=== PATIENT | female | born 1965 | race Caucasian/White ===

== ENCOUNTER 2016-03-15 07:16 | Day surgery (SDC) | payer OTHER, BC ==
[~2016-03-15] VITALS: Ht 177.8 cm; Wt 57.2 kg
[~2016-03-15 07:16] MED LIST: CETI10TA22 PO; FENTANYL PF 100 MCG/2 ML VIAL. IV PRN; HYDROMORPHONE 2 MG/ML VIAL. IV PRN; IV RINGERS,LACTATED 1000ML 1,000 ML IV SCH; LIDOCAINE 1% 1 ML SYRINGE. ID PRN; MORPHINE SULFATE 2 MG/ML DISP.SYRIN. IV PRN; ONDANSETRON PF 4 MG/2 ML VIAL. IV PRN; PROCHLORPERAZINE 10 MG/2 ML VIAL. IV PRN
[2016-03-15] MEDS ORDERED: LIDOCAINE 1%/EPI 1:100,000 20 ML VIAL. ONE (07:49)
[2016-03-15] MEDS ORDERED: BUPIVACAINE-EPI 0.5%-1:200000 50 ML VIAL. ONE (07:50)
[2016-03-15] MEDS ORDERED: MULT1TAB52 PO (07:51)
[2016-03-15] MEDS ORDERED: PROPOFOL 20 ML IV ONE (07:58)
[2016-03-15] MEDS ORDERED: DESFLURANE 31 TO 60 MINUTES IH ONE (07:58)
[2016-03-15] MEDS ORDERED: ONDANSETRON PF 4 MG/2 ML VIAL. ONE (07:58)
[2016-03-15] MEDS ORDERED: DEXAMETHASONE SOD PHOS 20 MG/5 ML VIAL. ONE (07:58)
[2016-03-15] MEDS ORDERED: LIDOCAINE 2% 100 MG/5 ML DISP.SYRIN. ONE (07:58)
[2016-03-15] MEDS ORDERED: FENTANYL PF 100 MCG/2 ML VIAL. ONE (07:59)
[2016-03-15 08:16] LABS: NEG OBC UR NEG; POS OBC UR POS
[2016-03-15] MEDS ORDERED: GLYCOPYRROLATE 1 MG/5 ML VIAL. ONE (08:47)
--- NOTE | 2016-03-15 09:23 | PDOC4 ---
Operative Note Operative Note Operative Note: Preoperative Diagnosis: Right breast mass Postoperative Diagnosis: Same Procedure: Excision of right breast mass Surgeon: Daniel Anesthesia: Gen. EBL: 5 mL Specimen: Right breast mass to pathology Drains: None Complications: None Indication: The patient is a 50-year-old female who is referred with a right breast mass. 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 The mass has continued to enlarge however and a more recent mammogram recommended a biopsy. I discussed with her options including a core needle biopsy versus excision. She strongly prefers excision at this point to allow for complete removal of the mass. The risks of surgery were discussed to include bleeding, infection, scar tissue, pain, recurrence, potential need for additional surgery or procedure. She understands and would like to proceed. Description: The patient was taken to the operating room and placed supine at the operating table. Gen. anesthesia was performed. The right breast was prepped with ChloraPrep and draped in a standard surgical manner. The mass was located between the 9 and 10 o'clock position in the lateral aspect. With a scalpel an incision was made in the skin lines directly overlying the mass. A combination of sharp and cautery dissection were utilized in the breast parenchyma. The mass was readily identified and grayish in color. The mass was mobilized circumferentially from the surrounding breast tissue. The mass was then completely excised and measured 3 x 2.5 cm. The mass was sent to pathology in formalin. Several small bleeding points in the cavity were controlled with cautery. Hemostasis then appeared good. No other abnormalities were noted. The subcutaneous tissue was approximated with interrupted 3-0 Vicryl. The skin was then closed with a 4-0 Monocryl suture. The incision was then infiltrated with half percent Marcaine with epinephrine. Steri-Strips and a sterile OpSite dressing were then applied. The patient tolerated the procedure well and was sent to the recovery room in stable condition. At the end of the case all counts were correct. KHADAR MORGAN MD Mar 15, 2016 09:23
--- NOTE | 2016-03-15 09:25 | DISCH ---
DISCHARGE INSTRUCTIONS Condition on Discharge Condition on Discharge: Stable Activity After Discharge Activity Instructions for Disc: Resume previous activity Diet after Discharge Diet after Discharge: Regular Wound Incision Care Wound/Incision Care: Other, see below (keep dressing clean and dry) Follow-Up Follow up with: Dr Morgan in 1 week in the office, call for appt [phone] KHADAR MORGAN MD Mar 15, 2016 09:25
[2016-03-15] MEDS ORDERED: HYDR-971 PO (09:41)
[2016-03-15] MEDS ORDERED: HYDROCODONE/APAP 5/325MG TABLET. PO ONE ×2 (10:15)
[2016-03-15 10:40] VITALS: BP 115/61
--- NOTE | 2016-03-17 17:31 | PATHOLOGY ---
PATHOLOGY REPORT * * * * * * * * FINAL DIAGNOSIS: Breast tissue, right breast biopsy: - Cellular fibroadenoma. See comment. COMMENT: Sections of the right breast biopsy reveal a fibroepithelial lesion having features of a fibroadenoma. There are focal areas which show a modest increase of stromal cellularity and stromal overgrowth with a slightly infiltrative peripheral border. However, there is no significant stromal cytologic atypia or mitotic activity. The case is also examined by Dr. Anjelica Oliver, pathologist with Pathology. 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 The fibroadenoma does focally extend to the inked peripheral margin. (JPM:mgr; d/t: 03/17/16) REPORT ELECTRONICALLY SIGNED BY: Guzman Martinez M.D. DATE/TIME: 03/17/2016 17:30 * * * * * * * * GROSS PATHOLOGY: The specimen is received in formalin and is designated "right breast mass." This consists of an ovoid segment of yellow and pink-jo fibrofatty breast tissue measuring up to 3.6 x 3.0 x 2.0 cm in greatest dimension. The external surface is inked. Sectioning reveals an eccentric and focally lobulated jo rubbery nodule which is focally calcified. There is a localizing marker within the nodule. The nodule measures up to approximately 2.9 cm in greatest dimension. The nodule is submitted entirely for microscopy as A1-A6. The cold ischemic time is 10 minutes. The total fixation time is 10 hours and 42 minutes. (JPM:mgr; d/t: 03/15/16) INITIAL CPT CODE(S): A; 32858 Professional services performed by [facility] at [address] [address] Technical services performed by [facility] at [address] [place] [address], [address], [place] [address]. [facility] fax: [phone] SPECIMEN(S) RECEIVED: A.Right breast mass CLINICAL HISTORY: Right breast mass PATIENT: DANIEL COBIAN /AGE: 912/06/1965 (Age: 50) PATIENT #: [id number] ALT CASE #: SPECIMEN COLLECTION DATE: 03/15/2016 SPECIMEN RECEIVED DATE: 03/15/2016 [facility] - [id number] [address] - PHONE: [phone] * * * END OF REPORT * * *
== END 2016-03-15 10:56 | disposition home or self-care (01) ==
LOC: SURG 07:16
PROVIDERS: ATTEND Surgery
DX: N63 Unspecified lump in breast (principal); F10.99 Alcohol use, unspecified with unspecified alcohol-induced disorder; K90.0 Celiac disease
CPT/HCPCS: 19120; 81025; C1769; J1100; J1956; J2405; J2704; J3010; J3490